=== PATIENT | male | born 1985 | race Two or more races ===

== ENCOUNTER 2021-04-08 05:12 | Emergency (ER) | payer SELFPAY ==
[~2021-04-08] VITALS: Ht 157.5 cm; Wt 54.4 kg
[2021-04-08] MEDS ORDERED: SODIUM CHLORIDE 0.9% 1,000 ML IV ONE (06:00)
[2021-04-08 06:31] LABS: Hematocrit 39.3 % (41.0-53.0); Hemoglobin 13.6 g/dL (13.5-17.5); Mean Corpuscular Hemoglobin 32.7 pg (28.0-32.0); Mean Corpuscular Hgb Conc. 34.7 g/dL (32.0-36.0); Mean Corpuscular Volume 94.3 fL (80.0-100.0); Platelet Count (auto) 119 10^3/uL (140-450); Red Blood Cells 4.17 10^6/uL (4.5-5.90); Red Cell Distribution Width 13.2 % (11.8-14.3); White Blood Cell 6.9 10^3/uL (4.4-10.8)
[2021-04-08 06:37] LABS: Basophils % (manual) 0 (0.0-2.0); Blast Cells 0; Eosinophils % (manual) 0 (0-7); Metamyelocytes % 0; Myelocytes % 0; Promyelocytes % 0; Reactive Lymphocytes 0
[2021-04-08 06:46] LABS: Albumin 2.6 g/dL (3.4-5.0); Calcium 8.8 mg/dL (8.5-10.1); Potassium 3.7 mmol/L (3.5-5.1)
[2021-04-08 06:49] LABS: Bilirubin, Total 0.5 mg/dL (0.2-1.0); Total Protein 7.8 g/dL (6.4-8.2)
[2021-04-08] MEDS ORDERED: InsuLIN REG 1unit/0.01ml Soln (100units/ml) IV ONE (07:00)
[2021-04-08] MEDS ORDERED: CLINDAMYCIN 600MG IV 50 ML IV ONE (07:00)
[2021-04-08] MEDS ORDERED: cefTRIAXone 1GM/50ML D5W 50 ML IV ONE (07:00)
[2021-04-08 07:35] LABS: Lactic Acid w/Reflex 5.9 mmol/L (0.4-2.0)
[2021-04-08] MEDS ORDERED: SODIUM BICARBONATE 8.4 % INJ 50ML VIAL IV ONE (08:00)
[2021-04-08 08:03] LABS: Band Neutrophils % (manual) 35; Lymphocytes % (manual) 7 (10.0-50.0)
[2021-04-08 08:04] LABS: Monocytes % (manual) 18 (0-12)
[2021-04-08 08:09] LABS: INR 1.17 (0.9-1.15); Partial Thromboplastin Time 32.6 sec (23.0-31.2)
[2021-04-08] MEDS ORDERED: MORPHINE SULFATE 4 MG/ML SYR/VIAL IV ONE (09:00)
[2021-04-08] MEDS ORDERED: ONDANSETRON HCL 4 MG/2 ML VIAL IV ONE (09:00)
[2021-04-08] MEDS ORDERED: HYDROmorphone HCL 2 MG/ML VL IV ONE (09:45)
[2021-04-08 10:12] VITALS: BP 113/58
== END 2021-04-08 10:35 | disposition short-term general hospital (02) ==
LOC: ER 05:12
DX: M72.6 Necrotizing fasciitis (principal); L03.115 Cellulitis of right lower limb; E11.65 Type 2 diabetes mellitus with hyperglycemia; E11.10 Type 2 diabetes mellitus with ketoacidosis without coma
CPT/HCPCS: 36415; 73562; 73700; 80053; 82010; 82962; 83036; 83605; 85007; 85027; 85610; 85730; 87040; 87077; 87186; 93971; 96361; 96365; 96367; 96375; 99285; J0696; J1170; J1815; J2270; J2405; J3490